=== PATIENT | male | born 1945 | race Caucasian/White ===

== ENCOUNTER 2022-07-04 21:58 | Inpatient (IN) | payer OTHER ==
[~2022-07-04] VITALS: Ht 188 cm; Wt 91.6 kg
[2022-07-04 22:10] VITALS: BP_SYST 164
[2022-07-04] MEDS ORDERED: MORPHINE 4 MG INJ. 4 MG/ML VIAL IVP ONE (23:00)
[2022-07-04 23:18] LABS: BASOPHILS # (AUTO) 0.1 K/uL (0.0-0.2); BASOPHILS % (AUTO) 0.7 % (0.0-2.0); EOSINOPHILS # (AUTO) 0.1 K/uL (0.0-0.4); EOSINOPHILS % (AUTO) 1.1 % (0.0-4.0); HEMATOCRIT 41.8 % (36-54); LYMPHOCYTES # (AUTO) 0.8 K/uL (1.0-5.5); LYMPHOCYTES % (AUTO) 7.2 % (20.5-51.5); MEAN CORPUSCULAR VOLUME 95 fL (79.0-98.0); MONOCYTES # (AUTO) 0.6 K/uL (0.0-1.0); MONOCYTES % (AUTO) 5.2 % (1.7-9.3); NEUTROPHILS # (AUTO) 10.1 K/uL (1.8-7.7); NEUTROPHILS % (AUTO) 85.8 % (40.0-70.0); PLATELET COUNT (AUTO) 169 K/uL (130-430); RED CELL DISTRIBUTION WIDTH 13.9 % (9.0-15.0); WHITE BLOOD COUNT (AUTO) 11.7 K/uL (4.8-10.8)
[2022-07-05 00:11] LABS: ALANINE AMINOTRANSFERASE 22 U/L (12-78); ALBUMIN 3.1 g/dL (3.4-4.8); ANION GAP 3 (5-15); ASPARTATE AMINOTRANSFERASE 20 U/L (10-37); CALCIUM 8.8 mg/dL (8.4-11.0); CHLORIDE 105 mmol/L (98-107); CREATININE 1.38 mg/dL (0.55-1.30); GLUCOSE 113 mg/dL (70-99); TOTAL BILIRUBIN 0.4 mg/dL (0.0-1.0); UREA NITROGEN, BLOOD 20 mg/dL (8-21)
[2022-07-05] MEDS ORDERED: ONDANSETRON HCL 4 MG/2 ML VIAL IVP ONE ×2 (00:15)
[2022-07-05] MEDS ORDERED: MORPHINE 4 MG INJ. 4 MG/ML VIAL IVP ONE (00:15)
[2022-07-05 00:45] LABS: PROTHROMBIN TIME 10.5 SECS (9.5-12.5)
[2022-07-05] MEDS ORDERED: ASPIRIN 81 MG TAB.CHEW PO ONE (02:45)
[2022-07-05] MEDS ORDERED: ONDANSETRON HCL 4 MG/2 ML VIAL IVP PRN (03:15)
[2022-07-05 04:00] VITALS: BP_SYST 161
[2022-07-05] MEDS: MORPHINE 4 MG INJ. 4 MG/ML VIAL IVP PRN ×4 (04:55→21:30)
[2022-07-05 08:00] VITALS: BP_SYST 140
[2022-07-05 11:06] VITALS: BP_SYST 127
[2022-07-05] MEDS ORDERED: PANTOPRAZOLE SODIUM 40 MG TAB PO ONE (12:45)
[2022-07-05] MEDS ORDERED: LOSARTAN POTASSIUM 50 MG TABLET (COZAAR) PO ONE (12:45)
[2022-07-05 15:49] LABS: BILIRUBIN,URINE NEGATIVE (NEGATIVE); BLOOD, URINE 2+ (NEGATIVE); CLARITY/URINE CLEAR (CLEAR); COLOR,URINE YELLOW (YELLOW); GLUCOSE,URINE NEGATIVE (NEGATIVE); KETONES,URINE NEGATIVE (NEGATIVE); LEUKOCYTE ESTERASE ,URINE NEGATIVE (NEGATIVE); NITRITE, URINE NEGATIVE (NEGATIVE); PROTEIN URINE TRACE (NEGATIVE)
[2022-07-05 16:09] LABS: BACTERIA,URINE FEW /HPF (None Seen); MUCUS,URINE None Seen /LPF (None Seen); WBC,URINE 0-3 /HPF (0-3)
[2022-07-05 16:35] VITALS: BP_SYST 122
[2022-07-05 19:00] VITALS: BP_SYST 155
[2022-07-05 20:00] VITALS: BP_SYST 155
[2022-07-05] MEDS ORDERED: ACETAMINOPHEN 325 MG TABLET PO PRN (21:30)
[2022-07-05] MEDS: D5/0.45 NS 1,000 ML IV SCH (21:43)
[2022-07-05] MEDS: TEMAZEPAM 15 MG CAPSULE PO PRN (22:58)
[2022-07-06] VITALS: BP_SYST 148
[2022-07-06 04:15] LABS: BASOPHILS % (AUTO) 0.5 % (0.0-2.0); EOSINOPHILS # (AUTO) 0.1 K/uL (0.0-0.4); EOSINOPHILS % (AUTO) 0.6 % (0.0-4.0); HEMATOCRIT 40.3 % (36-54); LYMPHOCYTES % (AUTO) 10.3 % (20.5-51.5); MEAN CORPUSCULAR VOLUME 95 fL (79.0-98.0); MONOCYTES # (AUTO) 0.7 K/uL (0.0-1.0); MONOCYTES % (AUTO) 6.6 % (1.7-9.3); NEUTROPHILS # (AUTO) 8.1 K/uL (1.8-7.7); PLATELET COUNT (AUTO) 132 K/uL (130-430); RED BLOOD CELL COUNT(AUTO) 4.24 MIL/uL (4.2-6.2); RED CELL DISTRIBUTION WIDTH 14.3 % (9.0-15.0); WHITE BLOOD COUNT (AUTO) 9.9 K/uL (4.8-10.8)
[2022-07-06 04:21] LABS: ANION GAP 4 (5-15); CALCIUM 8.1 mg/dL (8.4-11.0); CHLORIDE 103 mmol/L (98-107); CREATININE 1.21 mg/dL (0.55-1.30); GLUCOSE 125 mg/dL (70-99); POTASSIUM 4.2 mmol/L (3.5-5.1); PROTHROMBIN TIME 10.3 SECS (9.5-12.5); UREA NITROGEN, BLOOD 22 mg/dL (8-21)
[2022-07-06] MEDS: MORPHINE 4 MG INJ. 4 MG/ML VIAL IVP PRN ×2 (04:36→10:10)
[2022-07-06] MEDS: D5/0.45 NS 1,000 ML IV SCH ×3 (05:52→22:10)
[2022-07-06 08:16] VITALS: BP_SYST 136
[2022-07-06] MEDS ORDERED: ASPIRIN 81 MG TAB.CHEW PO SCH (09:00)
[2022-07-06] MEDS: PANTOPRAZOLE SODIUM 40 MG TAB PO SCH (09:00)
[2022-07-06] MEDS: ATORVASTATIN 20 MG TABLET PO SCH (09:00)
[2022-07-06] MEDS: LOSARTAN POTASSIUM 50 MG TABLET (COZAAR) PO SCH (09:00)
[2022-07-06] MEDS ORDERED: NS 1000 ML IV.SOLN IV ONE (10:51)
[2022-07-06] MEDS ORDERED: NS IRRIG SOLN 1000 ML IR ONE (10:51)
[2022-07-06] MEDS ORDERED: CEFAZOLIN 2 GM IVPB PREMIX 50 ML IV ONE (10:51)
[2022-07-06] MEDS ORDERED: LR 1,000 ML IV.SOLN IV ONE (10:51)
[2022-07-06] MEDS ORDERED: TRANEXAMIC ACID 1,000 MG/10 ML VIAL IV ONE (10:51)
[2022-07-06] MEDS ORDERED: BUPIVACAINE /EPINEPHRINE/PF 0.25% 30 ML VIAL INJ ONE (10:51)
[2022-07-06] MEDS ORDERED: VANCOMYCIN HCL 1000 MG/VIAL IV ONE (10:51)
[2022-07-06] MEDS ORDERED: KETOROLAC TROMETHAMINE 30 MG VIAL IVP ONE (10:51)
[2022-07-06] MEDS ORDERED: SEVOFLURANE 15 MIN GAS INH ONE (10:51)
[2022-07-06] MEDS ORDERED: LORATADINE 10 MG TABLET PO PRN (11:00)
[2022-07-06] MEDS ORDERED: oxyCODONE HCL 5 MG TABLET PO PRN ×2 (11:00)
[2022-07-06] MEDS ORDERED: traMADol HCL HCL 50 MG TABLET (ULTRAM) PO PRN (11:00)
[2022-07-06] MEDS ORDERED: HYDROmorphone 1 MG/ML INJ. CARTRIDGE IVP PRN ×4 (11:00→13:45)
[2022-07-06 11:40] VITALS: BP_SYST 124
[2022-07-06] MEDS ORDERED: ONDANSETRON HCL 4 MG/2 ML VIAL IVP PRN (11:45)
[2022-07-06 11:48] LABS: CHOLESTEROL 115 mg/dL (<200); HDL CHOLESTEROL 49 mg/dL (>45); LDL CHOLESTEROL 61 mg/dL (<100); TRIGLYCERIDES 50 mg/dL (30-150)
[2022-07-06] MEDS ORDERED: MIDAZOLAM HCL 2 MG/2 ML VIAL (VERSED) ONE (13:43)
[2022-07-06] MEDS ORDERED: MIDAZOLAM HCL 5 MG/5 ML VIAL IVP PRN (13:45)
[2022-07-06] MEDS ORDERED: LABETALOL 100 MG/ 20ML VIAL IVP PRN (13:45)
[2022-07-06] MEDS ORDERED: LR 1,000 ML IV SCH (13:45)
[2022-07-06] MEDS ORDERED: METOCLOPRAMIDE HCL 10 MG/2 ML VIAL IVP PRN ×2 (13:45→14:00)
[2022-07-06] MEDS ORDERED: BISACODYL 10 MG/SUPPOSITORY RC PRN (14:00)
[2022-07-06] MEDS ORDERED: NALOXONE HCL 0.4 MG/ML AMP (NARCAN) IVP PRN ×3 (14:00)
[2022-07-06] MEDS ORDERED: DIPHENHYDRAMINE HCL 25 MG CAPSULE PO PRN (14:00)
[2022-07-06 15:13] VITALS: BP_SYST 153
[2022-07-06] MEDS: ACETAMINOPHEN 500 MG TABLET PO SCH ×2 (16:17→22:10)
[2022-07-06] MEDS: SENNOSIDES/DOCUSATE SODIUM 1 TAB TABLET(SENOKOT-S) PO SCH ×2 (16:27→22:10)
[2022-07-06] MEDS: ceFAZolin SODIUM 2 GM in D5W 50 ML IV SCH ×2 (16:29→22:00)
[2022-07-06 16:50] VITALS: BP_SYST 153
[2022-07-06 20:13] VITALS: BP_SYST 121
[2022-07-07] MEDS: TEMAZEPAM 15 MG CAPSULE PO PRN (00:03)
[2022-07-07 00:45] VITALS: BP_SYST 128
[2022-07-07] MEDS: ceFAZolin SODIUM 2 GM in D5W 50 ML IV SCH (04:00)
[2022-07-07] MEDS: ACETAMINOPHEN 500 MG TABLET PO SCH ×3 (06:43→21:26)
[2022-07-07 07:48] LABS: ALANINE AMINOTRANSFERASE 11 U/L (12-78); ALBUMIN 2.3 g/dL (3.4-4.8); ANION GAP 5 (5-15); ASPARTATE AMINOTRANSFERASE 30 U/L (10-37); CALCIUM 8.1 mg/dL (8.4-11.0); CHLORIDE 101 mmol/L (98-107); CREATININE 1.21 mg/dL (0.55-1.30); GLUCOSE 105 mg/dL (70-99); POTASSIUM 3.8 mmol/L (3.5-5.1); TOTAL BILIRUBIN 0.5 mg/dL (0.0-1.0); UREA NITROGEN, BLOOD 23 mg/dL (8-21)
[2022-07-07 07:53] VITALS: BP_SYST 127
[2022-07-07 07:53] LABS: BASOPHILS % (AUTO) 0.2 % (0.0-2.0); EOSINOPHILS # (AUTO) 0.1 K/uL (0.0-0.4); EOSINOPHILS % (AUTO) 0.7 % (0.0-4.0); HEMATOCRIT 37.5 % (36-54); LYMPHOCYTES # (AUTO) 0.7 K/uL (1.0-5.5); LYMPHOCYTES % (AUTO) 6.3 % (20.5-51.5); MEAN CORPUSCULAR VOLUME 95 fL (79.0-98.0); MONOCYTES # (AUTO) 0.8 K/uL (0.0-1.0); MONOCYTES % (AUTO) 7.4 % (1.7-9.3); NEUTROPHILS # (AUTO) 8.9 K/uL (1.8-7.7); NEUTROPHILS % (AUTO) 85.4 % (40.0-70.0); PLATELET COUNT (AUTO) 113 K/uL (130-430); RED BLOOD CELL COUNT(AUTO) 3.96 MIL/uL (4.2-6.2); RED CELL DISTRIBUTION WIDTH 13.9 % (9.0-15.0); WHITE BLOOD COUNT (AUTO) 10.4 K/uL (4.8-10.8)
[2022-07-07] MEDS: PANTOPRAZOLE SODIUM 40 MG TAB PO SCH (08:42)
[2022-07-07] MEDS: SENNOSIDES/DOCUSATE SODIUM 1 TAB TABLET(SENOKOT-S) PO SCH ×2 (08:43→21:16)
[2022-07-07] MEDS: LOSARTAN POTASSIUM 50 MG TABLET (COZAAR) PO SCH (08:43)
[2022-07-07] MEDS: ATORVASTATIN 20 MG TABLET PO SCH (08:43)
[2022-07-07] MEDS: MORPHINE 4 MG INJ. 4 MG/ML VIAL IVP PRN (08:44)
[2022-07-07] MEDS: ASPIRIN 81 MG TAB.CHEW PO SCH ×2 (08:44→21:16)
[2022-07-07] MEDS: CELECOXIB 200 MG CAPSULE PO SCH ×2 (11:39→22:31)
[2022-07-07 12:00] VITALS: BP_SYST 136
[2022-07-07] MEDS: D5/0.45 NS 1,000 ML IV SCH ×2 (13:07→22:32)
[2022-07-07 16:00] VITALS: BP_SYST 140
[2022-07-07 20:00] VITALS: BP_SYST 152
[2022-07-08] MEDS: TEMAZEPAM 15 MG CAPSULE PO PRN (01:28)
[2022-07-08] MEDS: ACETAMINOPHEN 500 MG TABLET PO SCH ×2 (06:00→15:52)
[2022-07-08 07:40] VITALS: BP_SYST 148
[2022-07-08] MEDS: SENNOSIDES/DOCUSATE SODIUM 1 TAB TABLET(SENOKOT-S) PO SCH ×2 (08:59→21:26)
[2022-07-08] MEDS: LOSARTAN POTASSIUM 50 MG TABLET (COZAAR) PO SCH (09:00)
[2022-07-08] MEDS: CELECOXIB 200 MG CAPSULE PO SCH (09:00)
[2022-07-08] MEDS: ATORVASTATIN 20 MG TABLET PO SCH (09:00)
[2022-07-08] MEDS: PANTOPRAZOLE SODIUM 40 MG TAB PO SCH (09:00)
[2022-07-08] MEDS: MORPHINE 4 MG INJ. 4 MG/ML VIAL IVP PRN ×2 (09:01→21:27)
[2022-07-08] MEDS: ASPIRIN 81 MG TAB.CHEW PO SCH ×2 (09:02→21:26)
[2022-07-08] MEDS: D5/0.45 NS 1,000 ML IV SCH ×2 (09:03→21:33)
[2022-07-08 12:00] VITALS: BP_SYST 121
[2022-07-08 16:14] VITALS: BP_SYST 112
[2022-07-08 18:14] VITALS: BP_SYST 112
== END 2022-07-08 22:15 | DRG 522 ==
LOC: SED 21:58 → STU 07-05 03:03 → SMU 07-06 02:50
PROVIDERS: ADMIT Internal Medicine; ATTEND Internal Medicine
PROC: 0SRS0JA Replacement of Left Hip Joint, Femoral Surface with Synthetic Substitute, Uncemented, Open Approach (ICD-10-PCS; principal; 2022-07-06 10:51)
DX: S72.142A Displaced intertrochanteric fracture of left femur, initial encounter for closed fracture (principal); N17.9 Acute kidney failure, unspecified; I24.8 Other forms of acute ischemic heart disease; E44.1 Mild protein-calorie malnutrition; J43.9 Emphysema, unspecified; I73.9 Peripheral vascular disease, unspecified; K21.9 Gastro-esophageal reflux disease without esophagitis; S72.002A Fracture of unspecified part of neck of left femur, initial encounter for closed fracture; W18.39XA Other fall on same level, initial encounter; I10 Essential (primary) hypertension; E78.5 Hyperlipidemia, unspecified; F17.200 Nicotine dependence, unspecified, uncomplicated; I25.10 Atherosclerotic heart disease of native coronary artery without angina pectoris; Z20.822 Contact with and (suspected) exposure to COVID-19; Y93.89 Activity, other specified; Y99.8 Other external cause status; Y92.009 Unspecified place in unspecified non-institutional (private) residence as the place of occurrence of the external cause; Z79.82 Long term (current) use of aspirin; Z63.4 Disappearance and death of family member
CPT/HCPCS: 36415; 71045; 72170-TC; 73502; 73552; 73560-TC; 80048; 80053; 80061; 81000; 83880; 84484; 85025; 85610-TC; 87081; 88305; 88311; 92610-GN; 93005; 93306; 96374; 96375; 96376; 97116-GP; 97530-GP; 99285; C1776; G0378; J0690; J1170; J1885; J2270; J2405; J3370; J3465; J3490; J7030; J7060; J7120

== ENCOUNTER 2023-05-16 15:44 | Inpatient (IN) | payer OTHER ==
[~2023-05-16] VITALS: Ht 182.9 cm; Wt 74.4 kg
[2023-05-16 15:48] VITALS: BP_SYST 135; PULSE 98; RESP 18; TEMP 98.3; O2SAT 97
[2023-05-16 17:02] LABS: BASOPHILS # (AUTO) 0.1 K/uL (0.0-0.2); BASOPHILS % (AUTO) 1.3 % (0.0-2.0); EOSINOPHILS # (AUTO) 0.1 K/uL (0.0-0.4); EOSINOPHILS % (AUTO) 1.7 % (0.0-4.0); HEMATOCRIT 38.6 % (36-54); HEMOGLOBIN 12.6 g/dL (14.0-18.0); LYMPHOCYTES # (AUTO) 1.1 K/uL (1.0-5.5); LYMPHOCYTES % (AUTO) 22.3 % (20.5-51.5); MEAN CORPUSCULAR HEMOGLOBIN 32 pg (27-31); MEAN CORPUSCULAR HGB CONC 33 % (32-36); MEAN CORPUSCULAR VOLUME 97 fL (79.0-98.0); MONOCYTES # (AUTO) 0.4 K/uL (0.0-1.0); MONOCYTES % (AUTO) 7.8 % (1.7-9.3); NEUTROPHILS # (AUTO) 3.2 K/uL (1.8-7.7); NEUTROPHILS % (AUTO) 66.9 % (40.0-70.0); PLATELET COUNT (AUTO) 144 K/uL (130-430); RED BLOOD CELL COUNT(AUTO) 3.99 MIL/uL (4.2-6.2); RED CELL DISTRIBUTION WIDTH 14.1 % (9.0-15.0); WHITE BLOOD COUNT (AUTO) 4.8 K/uL (4.8-10.8)
[2023-05-16] MEDS ORDERED: DILTIAZEM HCL 120 MG CAP.SR.24H PO ONE (17:15)
[2023-05-16 17:23] LABS: ANION GAP 4 (5-15); CALCIUM 8.4 mg/dL (8.4-11.0); CARBON DIOXIDE 29 mmol/L (23-29); CHLORIDE 104 mmol/L (98-107); CREATININE 1.32 mg/dL (0.55-1.30); GLUCOSE 103 mg/dL (74-106); SODIUM SERUM 137 mmol/L (136-145); UREA NITROGEN, BLOOD 21 mg/dL (8-21)
[2023-05-16 17:33] LABS: ALANINE AMINOTRANSFERASE 38 U/L (12-78); ASPARTATE AMINOTRANSFERASE 41 U/L (10-37); TOTAL BILIRUBIN 0.5 mg/dL (0.0-1.0); TOTAL PROTEIN, SERUM 5.7 g/dL (6.4-8.3)
[2023-05-16] MEDS ORDERED: ASPI-1155 PO (17:34)
[2023-05-16] MEDS ORDERED: CARV3.1246 PO (17:34)
[2023-05-16] MEDS ORDERED: LOSA50TA3 PO (17:34)
[2023-05-16] MEDS ORDERED: COR12.5 PO (17:36)
[2023-05-16] MEDS ORDERED: ASPIRIN 81 MG TABLET(ECOTRIN) PO ONE (18:00)
[2023-05-16] MEDS ORDERED: FUROSEMIDE 20 MG/2 ML VIAL IVP ONE (18:15)
[2023-05-16] MEDS ORDERED: *LOVENOX 1MG/KG Q12H/PHARMACY XX ONE (20:45)
[2023-05-16] MEDS ORDERED: ACETAMINOPHEN 325 MG TABLET PO PRN (23:15)
[2023-05-16] MEDS ORDERED: HYDROcodone/ACETAMIN 5-325 MG TAB (NORCO/ VICODIN) PO PRN (23:15)
[2023-05-16] MEDS ORDERED: HYDROcodone/ACETAMIN 10-325 MG TAB PO PRN (23:15)
[2023-05-16] MEDS ORDERED: NALOXONE HCL 0.4 MG/ML AMP (NARCAN) IVP PRN ×2 (23:15)
[2023-05-16] MEDS ORDERED: ONDANSETRON HCL 4 MG/2 ML VIAL IVP PRN (23:15)
[2023-05-16] MEDS ORDERED: LORazepam 2 MG/ML VIAL IVP PRN (23:15)
[2023-05-16] MEDS ORDERED: ENOXAPARIN SODIUM 60 MG/0.6 ML SYRINGE SUBCUT SCH (23:45)
[2023-05-16] MEDS ORDERED: ENOXAPARIN SODIUM 60 MG/0.6 ML SYRINGE ONE (23:55)
[2023-05-17] MEDS ORDERED: HALOPERIDOL 1 MG TABLET (HALDOL) PO ONE (01:30)
[2023-05-17] MEDS ORDERED: ZOLPIDEM TARTRATE 5 MG TABLET PO ONE (01:45)
[2023-05-17 06:23] LABS: BASOPHILS # (AUTO) 0.1 K/uL (0.0-0.2); BASOPHILS % (AUTO) 1.3 % (0.0-2.0); EOSINOPHILS # (AUTO) 0.1 K/uL (0.0-0.4); EOSINOPHILS % (AUTO) 2.5 % (0.0-4.0); HEMATOCRIT 37.7 % (36-54); HEMOGLOBIN 12.4 g/dL (14.0-18.0); LYMPHOCYTES # (AUTO) 1.8 K/uL (1.0-5.5); LYMPHOCYTES % (AUTO) 34.6 % (20.5-51.5); MEAN CORPUSCULAR HEMOGLOBIN 32 pg (27-31); MEAN CORPUSCULAR HGB CONC 33 % (32-36); MEAN CORPUSCULAR VOLUME 97 fL (79.0-98.0); MONOCYTES # (AUTO) 0.5 K/uL (0.0-1.0); MONOCYTES % (AUTO) 9.5 % (1.7-9.3); NEUTROPHILS # (AUTO) 2.7 K/uL (1.8-7.7); NEUTROPHILS % (AUTO) 52.1 % (40.0-70.0); PLATELET COUNT (AUTO) 131 K/uL (130-430); RED BLOOD CELL COUNT(AUTO) 3.91 MIL/uL (4.2-6.2); RED CELL DISTRIBUTION WIDTH 13.9 % (9.0-15.0); WHITE BLOOD COUNT (AUTO) 5.1 K/uL (4.8-10.8)
[2023-05-17] MEDS: NORMAL SALINE 5 ML DISP.SYRIN IVF SCH ×2 (06:34→14:00)
[2023-05-17 06:43] LABS: ALANINE AMINOTRANSFERASE 30 U/L (12-78); ALBUMIN 2.6 g/dL (3.4-4.8); ANION GAP 4 (5-15); ASPARTATE AMINOTRANSFERASE 35 U/L (10-37); CALCIUM 7.9 mg/dL (8.4-11.0); CARBON DIOXIDE 27 mmol/L (23-29); CHLORIDE 103 mmol/L (98-107); CREATININE 1.28 mg/dL (0.55-1.30); GLUCOSE 84 mg/dL (74-106); PHOSPHORUS 3.1 mg/dL (2.7-4.5); POTASSIUM 3.6 mmol/L (3.5-5.1); SODIUM SERUM 134 mmol/L (136-145); TOTAL BILIRUBIN 0.5 mg/dL (0.0-1.0); TOTAL PROTEIN, SERUM 5.2 g/dL (6.4-8.3); UREA NITROGEN, BLOOD 20 mg/dL (8-21)
[2023-05-17 07:39] LABS: FREE T4 (FREE THYROXINE) 1.3 ng/dL (0.6-1.6); THYROID STIMULATING HORMONE 0.7 uIu/mL (0.34-4.82)
[2023-05-17 08:00] VITALS: BP_SYST 123; PULSE 71; RESP 16; TEMP 98; O2SAT 100
[2023-05-17] MEDS: ASPIRIN 81 MG TAB.CHEW PO SCH ×2 (09:00→09:38)
[2023-05-17] MEDS: LOSARTAN POTASSIUM 50 MG TABLET (COZAAR) PO SCH ×3 (09:00→20:45)
[2023-05-17] MEDS: CARVEDILOL 12.5 MG TABLET (COREG) PO SCH ×3 (09:00→20:45)
[2023-05-17 09:30] VITALS: BP_SYST 123; PULSE 71; RESP 16; TEMP 98; O2SAT 96
[2023-05-17] MEDS ORDERED: APIXABAN 2.5 MG TABLET PO ONE (10:00)
[2023-05-17 12:30] VITALS: BP_SYST 127; PULSE 65; RESP 17; TEMP 98.1; O2SAT 100
[2023-05-17 16:23] VITALS: BP_SYST 121; PULSE 66; RESP 17; TEMP 97.9; O2SAT 99
[2023-05-17 20:00] VITALS: BP_SYST 123; PULSE 71; RESP 16; TEMP 98; O2SAT 100
[2023-05-17 20:30] VITALS: BP_SYST 150; PULSE 85; RESP 16; TEMP 97.4; O2SAT 99
[2023-05-17] MEDS: APIXABAN 2.5 MG TABLET PO SCH (20:46)
[2023-05-18] VITALS: BP_SYST 129; PULSE 85; RESP 18; TEMP 97.9; O2SAT 98
[2023-05-18] MEDS: NORMAL SALINE 5 ML DISP.SYRIN IVF SCH ×3 (00:42→14:00)
[2023-05-18 00:56] VITALS: BP_SYST 123; PULSE 71; RESP 16; TEMP 98; O2SAT 100
[2023-05-18 04:51] LABS: BASOPHILS % (AUTO) 0.7 % (0.0-2.0); EOSINOPHILS # (AUTO) 0.1 K/uL (0.0-0.4); EOSINOPHILS % (AUTO) 2.2 % (0.0-4.0); HEMATOCRIT 39.7 % (36-54); HEMOGLOBIN 12.8 g/dL (14.0-18.0); LYMPHOCYTES # (AUTO) 1.8 K/uL (1.0-5.5); LYMPHOCYTES % (AUTO) 29.9 % (20.5-51.5); MEAN CORPUSCULAR HEMOGLOBIN 31 pg (27-31); MEAN CORPUSCULAR HGB CONC 32 % (32-36); MEAN CORPUSCULAR VOLUME 97 fL (79.0-98.0); MONOCYTES # (AUTO) 0.6 K/uL (0.0-1.0); MONOCYTES % (AUTO) 9.6 % (1.7-9.3); NEUTROPHILS # (AUTO) 3.5 K/uL (1.8-7.7); NEUTROPHILS % (AUTO) 57.6 % (40.0-70.0); PLATELET COUNT (AUTO) 138 K/uL (130-430); RED BLOOD CELL COUNT(AUTO) 4.09 MIL/uL (4.2-6.2); WHITE BLOOD COUNT (AUTO) 6.1 K/uL (4.8-10.8)
[2023-05-18 05:22] LABS: ANION GAP 5 (5-15); CALCIUM 8.2 mg/dL (8.4-11.0); CARBON DIOXIDE 28 mmol/L (23-29); CHLORIDE 103 mmol/L (98-107); CREATININE 1.11 mg/dL (0.55-1.30); GLUCOSE 83 mg/dL (74-106); POTASSIUM 4.1 mmol/L (3.5-5.1); SODIUM SERUM 136 mmol/L (136-145); UREA NITROGEN, BLOOD 22 mg/dL (8-21)
[2023-05-18 08:00] VITALS: O2SAT 99
[2023-05-18 08:24] VITALS: BP_SYST 137; PULSE 75; RESP 16; O2SAT 99
[2023-05-18] MEDS: LOSARTAN POTASSIUM 50 MG TABLET (COZAAR) PO SCH (09:00)
[2023-05-18] MEDS: ASPIRIN 81 MG TAB.CHEW PO SCH (10:54)
[2023-05-18] MEDS: CARVEDILOL 12.5 MG TABLET (COREG) PO SCH (10:55)
[2023-05-18] MEDS: APIXABAN 2.5 MG TABLET PO SCH (10:57)
[2023-05-18] MEDS ORDERED: APIX5TAB4 PO (11:34)
[2023-05-18 12:10] VITALS: BP_SYST 148; PULSE 76; RESP 18; TEMP 97; O2SAT 100
[2023-05-18 15:28] VITALS: BP_SYST 145; PULSE 81; RESP 16; TEMP 98.2; O2SAT 99
== END 2023-05-18 16:10 | disposition home or self-care (01) | DRG 309 ==
LOC: SED 15:44 → STU 18:34
PROVIDERS: ADMIT Specialist; ATTEND Specialist
DX: I48.91 Unspecified atrial fibrillation (principal); D68.69 Other thrombophilia; E44.1 Mild protein-calorie malnutrition; I25.10 Atherosclerotic heart disease of native coronary artery without angina pectoris; F17.210 Nicotine dependence, cigarettes, uncomplicated; I77.810 Thoracic aortic ectasia; I73.9 Peripheral vascular disease, unspecified; I11.0 Hypertensive heart disease with heart failure; I50.9 Heart failure, unspecified; J44.9 Chronic obstructive pulmonary disease, unspecified; Z79.82 Long term (current) use of aspirin; Z95.5 Presence of coronary angioplasty implant and graft; Z68.22 Body mass index [BMI] 22.0-22.9, adult
CPT/HCPCS: 36415; 71045; 80048; 80053; 83735; 83880; 84100; 84439; 84443; 84484; 85025; 87081; 93005; 93306; 96374; 99285; G0378; J1650; J1940